=== PATIENT | female | born 1945 | race Caucasian/White ===

== ENCOUNTER 2019-01-22 20:17 | Observation (INO) ==
[2019-01-22 21:45] LABS: Basophils % 0.5 %; Eosinophils # 0.1 K/mcL (0.0-0.6); Eosinophils % 2.3 %; Hematocrit 46.2 % (35.3-44.9); Hemoglobin 15.1 g/dL (11.5-15.4); Immature Granulocytes % 0.3 % (0-4); Lymphocytes # 0.9 K/mcL (0.6-4.6); Lymphocytes % 23.9 %; Mean Corpuscular HGB Conc 32.7 g/dL (31.6-35.5); Mean Corpuscular Hemoglobin 30.5 pg (28.0-33.3); Mean Corpuscular Volume 93.3 fL (83.0-100.0); Mean Platelet Volume 12.3 fL (9.4-12.4); Monocytes # 0.5 K/mcL (0.0-1.3); Monocytes % 12.3 %; Neutrophils # 2.4 K/mcL (1.6-8.9); Platelet Count 151 K/mcL (140-400); Red Blood Count 4.95 M/mcL (3.82-4.97); Red Cell Distribution Width 12.1 % (11.5-14.5); Segmented Neutrophils % 60.7 %; White Blood Count 3.9 K/mcL (4.3-11.1)
--- NOTE | 2019-01-22 21:49 | Emergency Department Note ---
Disposition Clinical Impression: Delirium Altered mental status Qualifiers: Altered mental status type: unspecified Qualified Code(s): R41.82 - Altered mental status, unspecified Disposition: Admitted As Inpatient Condition: Fair Time of Disposition: 01:06 General Adult HPI - General Chief complaint: ED Psychiatric Symptoms Stated complaint: hallucinations/1A Time Seen by Provider: 01/22/19 20:54 Source: patient Mode of arrival: ambulatory Limitations: no limitations Nursing Notes Reviewed: Yes Vital Signs Reviewed: Yes - History of Present Illness HPI Narrative: 73 yo female with past medical history of a seizure disorder with recent change to her medications 3 weeks ago presents to the emergency department with hallucinations and altered mental status. Patient is unable to answer questions and repeatedly just says "I do not know" and is acting very agitated here in the emergency room. Her states that 3 weeks ago she was started on a low- dose benzodiazepine for her seizure disorder and she has been having increased altered mental status since administration of this medication. Medication was stopped 1 week ago and her symptoms have been waxing and waning until tonight when she acutely worsen. She was seen here 3 days ago and was discharged but is afraid that he cannot take care of her at home like this. Pain Scale: 0 - Related Data Home Medications Medication Instructions Recorded Confirmed Cetirizine HCl [Zyrtec] 10 mg PO DAILY 01/18/19 01/22/19 Estradiol [Estrace] 1 mg PO DAILY 01/18/19 01/22/19 LORazepam [Ativan] 1 mg PO DAILY PRN 01/18/19 01/22/19 Mirtazapine [Remeron] 30 mg PO HS 01/18/19 01/22/19 lamoTRIgine [Subvenite] 200 mg PO QAM 01/18/19 01/22/19 lamoTRIgine [Subvenite] 300 mg PO HS 01/18/19 01/22/19 Allergies Allergy/AdvReac Type Severity Reaction Status Date / Time phenobarbital AdvReac Rash Verified 01/22/19 21:58 Limitations: ROS unobtainable due to patients medical condition Past Medical History - Past Medical History Attestation: Yes The following information was validated with the patient. Source: obtained from family Medical history: Reports: seizures Psychiatric history: Reports: anxiety - Social History Smoking Status: Never smoker Smokeless Tobacco Status: No Alcohol use: Reports: occasionally Drug use: Reports: none Physical Exam - General Limitations: no limitations General appearance: alert, in no apparent distress - Head Head exam: atraumatic, normocephalic - Eye Eye exam: Present: normal appearance, PERRL, EOMI - ENT ENT exam: normal exam, normal oropharynx - Neck Neck exam: Present: normal inspection. Absent: tenderness, lymphadenopathy - Chest Chest inspection: Present: normal inspection. Absent: tenderness, rash - Respiratory Respiratory exam: Present: normal lung sounds bilaterally. Absent: wheezes - Cardiovascular Cardiovascular exam: Present: regular rate, normal rhythm - Abdominal Exam Abdominal exam: Present: soft, Non-Tender. Absent: distention, guarding, rebound, rigidity - Extremities Exam Extremities exam: Present: normal inspection. Absent: tenderness, pedal edema - Neurological Exam Neurological exam: Present: alert. Absent: oriented X3 - Psychiatric Psychiatric exam: Present: normal affect, normal mood - Skin Skin exam: Present: warm, dry, intact Course Vital Signs Temperature 97.8 F 01/22/19 20:19 Pulse Rate 90 01/22/19 20:19 Respiratory Rate 20 01/22/19 20:19 Blood Pressure 130/85 01/22/19 20:19 O2 Sat by Pulse Oximetry 96 01/22/19 20:19 Temperature 97.8 F 01/22/19 20:19 Pulse Rate 77 01/23/19 00:10 Respiratory Rate 16 01/23/19 00:10 Blood Pressure 146/90 01/23/19 00:10 O2 Sat by Pulse Oximetry 100 01/23/19 00:10 Oxygen Delivery Oxygen Delivery Room Air Medical Decision Making - [facility] Narrative Medical decision making narrative: Patient presents with altered mental status that has been waxing and waning concerning for delirium which started after she began taking ONFI for seizures. It is undetermined if this is very to medication use or an infectious source. We will obtain altered mental status labs and imaging including CT scan of her head and a chest x-ray. Patient's nighttime dose of her chronic seizure medication Lamictal will be ordered for her or she is here. 1130 - patient's lab work is unremarkable. EKG does not demonstrate any acute changes. Head CT and chest x-ray are without acute findings. Awaiting urinalysis at this time. 0053 - patient has been voiding on her urinalysis and urine tox screen for over an hour. She will be admitted to hospitalist for further workup of her altered mental status which could be secondary to medications or a urinary tract infection. Patient has been accepted to the hospital at this time. - Medical Records Medical records reviewed: Yes I reviewed the patient's medical records. - Lab Data Lab results reviewed: Yes I reviewed the patient's lab results. Result diagrams: 01/22/19 21:25 01/22/19 21:25 Lab Results 01/22/19 01/22/19 01/22/19 Range/Units 21:25 21:25 : WBC 3.9 L (4.3-11.1) K/mcL RBC 4.95 (3.82-4.97) M/mcL Hgb 15.1 (11.5-15.4) g/dL Hct 46.2 H (35.3-44.9) % MCV 93.3 (83.0-100.0) fL MCH 30.5 (28.0-33.3) pg MCHC 32.7 (31.6-35.5) g/dL RDW 12.1 (11.5-14.5) % Plt Count 151 (140-400) K/mcL MPV 12.3 (9.4-12.4) fL Immature Gran % 0.3 (0-4) % Seg Neutrophils % 60.7 % Lymphocytes % 23.9 % Monocytes % 12.3 % Eosinophils % 2.3 % Basophils % 0.5 % Neutrophils # 2.4 (1.6-8.9) K/mcL Lymphocytes # 0.9 (0.6-4.6) K/mcL Monocytes # 0.5 (0.0-1.3) K/mcL Eosinophils # 0.1 (0.0-0.6) K/mcL Basophils # 0.0 (0.0-0.2) K/mcL PT 11.6 (9.4-12.1) Seconds INR 1.0 APTT 31.0 (26.0-36.0) Seconds Sodium 142 (136-145) mEq/L Potassium 4.1 (3.5-5.1) mEq/L Chloride 103 (98-107) mEq/L Carbon Dioxide 28 (23-29) mEq/L BUN 15 (8-23) mg/dL Creatinine 0.89 (0.60-1.20) mg/dL Est GFR ( Amer) > 60 (> 60) Est GFR (Non-Af Amer) > 60 (> 60) BUN/Creatinine Ratio 17 (6-26) Glucose 107 H (70-105) mg/dL Calculated Osmolality 295 (280-300) Calcium 9.7 (8.6-10.3) mg/dL Total Bilirubin 0.5 (0.3-1.0) mg/dL Direct Bilirubin 0.1 (0.0-0.2) mg/dL Indirect Bilirubin 0.4 (0.0-1.2) mg/dL AST 21 (13-39) Units/L ALT 16 (7-52) Units/L Alkaline Phosphatase 65 (34-104) Units/L Ammonia (16-53) mcmol/L Troponin I < 0.03 (< 0.04) ng/mL Serum Total Protein 7.3 (6.4-8.9) g/dL Albumin 4.6 (3.5-5.7) g/dL Globulin 2.7 (2.4-3.5) g/dL Albumin/Globulin Ratio 1.7 (1.1-2.2) Urine Color (Yellow) Urine Clarity (Clear) Urine pH (5.0-8.0) pH Units Ur Specific Gifford (1.010-1.025) Urine Protein (Neg-Trace) mg/dL Urine Glucose (UA) (Normal) mg/dL Urine Ketones (Negative) mg/dL Urine Blood (Negative) Urine Nitrite (Negative) Urine Bilirubin (Negative) Urine Urobilinogen (Normal) mg/dL Ur Leukocyte Esterase (Negative) Ur Culture Indicated? (NO) Salicylates < 2.5 L (15.0-30.0) mg/dL Acetaminophen < 10 L (10-20) mcg/mL Ur Drug Screen Interp Ethyl Alcohol < 10 (Less than 10) mg/dL 01/22/19 01/23/19 01/23/19 Range/Units 21:25 00:49 00:49 WBC (4.3-11.1) K/mcL RBC (3.82-4.97) M/mcL Hgb (11.5-15.4) g/dL Hct (35.3-44.9) % MCV (83.0-100.0) fL MCH (28.0-33.3) pg MCHC (31.6-35.5) g/dL RDW (11.5-14.5) % Plt Count (140-400) K/mcL MPV (9.4-12.4) fL Immature Gran % (0-4) % Seg Neutrophils % % Lymphocytes % % Monocytes % % Eosinophils % % Basophils % % Neutrophils # (1.6-8.9) K/mcL Lymphocytes # (0.6-4.6) K/mcL Monocytes # (0.0-1.3) K/mcL Eosinophils # (0.0-0.6) K/mcL Basophils # (0.0-0.2) K/mcL PT (9.4-12.1) Seconds INR APTT (26.0-36.0) Seconds Sodium (136-145) mEq/L Potassium (3.5-5.1) mEq/L Chloride (98-107) mEq/L Carbon Dioxide (23-29) mEq/L BUN (8-23) mg/dL Creatinine (0.60-1.20) mg/dL Est GFR ( Amer) (> 60) Est GFR (Non-Af Amer) (> 60) BUN/Creatinine Ratio (6-26) Glucose (70-105) mg/dL Calculated Osmolality (280-300) Calcium (8.6-10.3) mg/dL Total Bilirubin (0.3-1.0) mg/dL Direct Bilirubin (0.0-0.2) mg/dL Indirect Bilirubin (0.0-1.2) mg/dL AST (13-39) Units/L ALT (7-52) Units/L Alkaline Phosphatase (34-104) Units/L Ammonia 26 (16-53) mcmol/L Troponin I (< 0.04) ng/mL Serum Total Protein (6.4-8.9) g/dL Albumin (3.5-5.7) g/dL Globulin (2.4-3.5) g/dL Albumin/Globulin Ratio (1.1-2.2) Urine Color Yellow (Yellow) Urine Clarity Clear (Clear) Urine pH 7.0 (5.0-8.0) pH Units Ur Specific Gifford 1.010 (1.010-1.025) Urine Protein Negative (Neg-Trace) mg/dL Urine Glucose (UA) Normal (Normal) mg/dL Urine Ketones Trace H (Negative) mg/dL Urine Blood Negative (Negative) Urine Nitrite Negative (Negative) Urine Bilirubin Negative (Negative) Urine Urobilinogen Normal (Normal) mg/dL Ur Leukocyte Esterase Negative (Negative) Ur Culture Indicated? NO (NO) Salicylates (15.0-30.0) mg/dL Acetaminophen (10-20) mcg/mL Ur Drug Screen Interp See Below Ethyl Alcohol (Less than 10) mg/dL - Radiology Data Radiology results reviewed: Yes I reviewed the patient's radiology results. - EKG Data EKG #1 EKG attestation: Yes I reviewed and interpreted this EKG. EKG results narrative: EKG obtained at 12:31 on 01/22/2019 Heart rate 80 bpm, MN interval 157, QRS duration 99, QT 390, QTC 450 Sinus rhythm without any acute ST segment elevations or depressions. No other T-wave abnormalities. No old EKG for comparison at this time. Attestation Statement - Attestation Attestation: I have seen this patient with the resident physician, I have personally evaluated this patient. I had reviewed the chart and document dictation by the resident physician and aM in agreement with the information documented by the resident physician. Please see documentation by the resident physician for complete chart including past medical history, family medical history, review of systems, current history and physical and laboratory and imaging studies. I was present for all procedures, provided direct supervision for all procedures, was present for the entirety of all procedures and provided direct guidance during the procedures. Please see documentation by the resident physician for any procedures performed. I have reviewed all interpretations of EKGs, and reviewed all EKGs performed on patient's as well. I have also reviewed reports of imaging as provided by radiology.
[2019-01-22 21:52] LABS: Prothrombin Time 11.6 Seconds (9.4-12.1)
[2019-01-22 22:07] LABS: Acetaminophen < 10 mcg/mL (10-20); Alanine Aminotransferase 16 Units/L (7-52); Albumin 4.6 g/dL (3.5-5.7); Albumin/Globulin Ratio 1.7 (1.1-2.2); Alkaline Phosphatase 65 Units/L (34-104); Aspartate Amino Transferase 21 Units/L (13-39); BUN/Creatinine Ratio 17 (6-26); Bilirubin,Direct 0.1 mg/dL (0.0-0.2); Bilirubin,Indirect 0.4 mg/dL (0.0-1.2); Bilirubin,Total 0.5 mg/dL (0.3-1.0); Blood Urea Nitrogen 15 mg/dL (8-23); Calcium 9.7 mg/dL (8.6-10.3); Carbon Dioxide 28 mEq/L (23-29); Chloride 103 mEq/L (98-107); Ethanol < 10 mg/dL (Less than 10); Globulin 2.7 g/dL (2.4-3.5); Glucose 107 mg/dL (70-105); Osmolality,Calculated 295 (280-300); Potassium 4.1 mEq/L (3.5-5.1); Salicylate < 2.5 mg/dL (15.0-30.0); Sodium 142 mEq/L (136-145); Total Protein 7.3 g/dL (6.4-8.9); Troponin I < 0.03 ng/mL (< 0.04); eGFR For African Americans > 60 (> 60); eGFR For Non-African Americans > 60 (> 60)
[2019-01-22] MEDS ORDERED: lamoTRIgine 100 MG TABLET PO SCH (22:15)
[2019-01-22] MEDS ORDERED: 0.9 % Sodium Chloride 1,000 ML IVC ONE (22:22)
--- NOTE | 2019-01-23 00:59 | Emergency Department Note ---
Disposition Clinical Impression: Delirium, Altered mental status Disposition: Admitted As Inpatient Condition: Fair Referrals: NONE,PCP [Primary Care Provider] - Forms: ED Satisfaction Letter Time of Disposition: 00:59 General Adult HPI - General Chief complaint: ED Psychiatric Symptoms Stated complaint: hallucinations/1A Time Seen by Provider: 01/22/19 20:54 Source: patient Mode of arrival: ambulatory Limitations: no limitations Nursing Notes Reviewed: Yes Vital Signs Reviewed: Yes - History of Present Illness Pain Scale: 0 - Related Data Home Medications Medication Instructions Recorded Confirmed Cetirizine HCl [Zyrtec] 10 mg PO DAILY 01/18/19 01/22/19 Estradiol [Estrace] 1 mg PO DAILY 01/18/19 01/22/19 LORazepam [Ativan] 1 mg PO DAILY PRN 01/18/19 01/22/19 Mirtazapine [Remeron] 30 mg PO HS 01/18/19 01/22/19 lamoTRIgine [Subvenite] 200 mg PO QAM 01/18/19 01/22/19 lamoTRIgine [Subvenite] 300 mg PO HS 01/18/19 01/22/19 Allergies Allergy/AdvReac Type Severity Reaction Status Date / Time phenobarbital AdvReac Rash Verified 01/22/19 21:58 Past Medical History - Past Medical History Medical history: Reports: seizures Psychiatric history: Reports: anxiety - Social History Smoking Status: Never smoker Smokeless Tobacco Status: No Alcohol use: Reports: occasionally Drug use: Reports: none Physical Exam - General Limitations: no limitations General appearance: alert, in no apparent distress Course Vital Signs Temperature 97.8 F 01/22/19 20:19 Pulse Rate 90 01/22/19 20:19 Respiratory Rate 20 01/22/19 20:19 Blood Pressure 130/85 01/22/19 20:19 O2 Sat by Pulse Oximetry 96 01/22/19 20:19 Temperature 97.8 F 01/22/19 20:19 Pulse Rate 77 01/23/19 00:10 Respiratory Rate 16 01/23/19 00:10 Blood Pressure 146/90 01/23/19 00:10 O2 Sat by Pulse Oximetry 100 01/23/19 00:10 Oxygen Delivery Oxygen Delivery Room Air Medical Decision Making - Lab Data Result diagrams: 01/22/19 21:25 01/22/19 21:25 Lab Results 06/01/22/19 01/22/19 Range/Units 21:25 21:25 21:25 WBC 3.9 L (4.3-11.1) K/mcL RBC 4.95 (3.82-4.97) M/mcL Hgb 15.1 (11.5-15.4) g/dL Hct 46.2 H (35.3-44.9) % MCV 93.3 (83.0-100.0) fL MCH 30.5 (28.0-33.3) pg MCHC 32.7 (31.6-35.5) g/dL RDW 12.1 (11.5-14.5) % Plt Count 151 (140-400) K/mcL MPV 12.3 (9.4-12.4) fL Immature Gran % 0.3 (0-4) % Seg Neutrophils % 60.7 % Lymphocytes % 23.9 % Monocytes % 12.3 % Eosinophils % 2.3 % Basophils % 0.5 % Neutrophils # 2.4 (1.6-8.9) K/mcL Lymphocytes # 0.9 (0.6-4.6) K/mcL Monocytes # 0.5 (0.0-1.3) K/mcL Eosinophils # 0.1 (0.0-0.6) K/mcL Basophils # 0.0 (0.0-0.2) K/mcL PT 11.6 (9.4-12.1) Seconds INR 1.0 APTT 31.0 (26.0-36.0) Seconds Sodium 142 (136-145) mEq/L Potassium 4.1 (3.5-5.1) mEq/L Chloride 103 (98-107) mEq/L Carbon Dioxide 28 (23-29) mEq/L BUN 15 (8-23) mg/dL Creatinine 0.89 (0.60-1.20) mg/dL Est GFR ( Amer) > 60 (> 60) Est GFR (Non-Af Amer) > 60 (> 60) BUN/Creatinine Ratio 17 (6-26) Glucose 107 H (70-105) mg/dL Calculated Osmolality 295 (280-300) Calcium 9.7 (8.6-10.3) mg/dL Total Bilirubin 0.5 (0.3-1.0) mg/dL Direct Bilirubin 0.1 (0.0-0.2) mg/dL Indirect Bilirubin 0.4 (0.0-1.2) mg/dL AST 21 (13-39) Units/L ALT 16 (7-52) Units/L Alkaline Phosphatase 65 (34-104) Units/L Ammonia (16-53) mcmol/L Troponin I < 0.03 (< 0.04) ng/mL Serum Total Protein 7.3 (6.4-8.9) g/dL Albumin 4.6 (3.5-5.7) g/dL Globulin 2.7 (2.4-3.5) g/dL Albumin/Globulin Ratio 1.7 (1.1-2.2) Salicylates < 2.5 L (15.0-30.0) mg/dL Acetaminophen < 10 L (10-20) mcg/mL Ethyl Alcohol < 10 (Less than 10) mg/dL 01/22/ Range/Units 21:25 WBC (4.3-11.1) K/mcL RBC (3.82-4.97) M/mcL Hgb (11.5-15.4) g/dL Hct (35.3-44.9) % MCV (83.0-100.0) fL MCH (28.0-33.3) pg MCHC (31.6-35.5) g/dL RDW (11.5-14.5) % Plt Count (140-400) K/mcL MPV (9.4-12.4) fL Immature Gran % (0-4) % Seg Neutrophils % % Lymphocytes % % Monocytes % % Eosinophils % % Basophils % % Neutrophils # (1.6-8.9) K/mcL Lymphocytes # (0.6-4.6) K/mcL Monocytes # (0.0-1.3) K/mcL Eosinophils # (0.0-0.6) K/mcL Basophils # (0.0-0.2) K/mcL PT (9.4-12.1) Seconds INR APTT (26.0-36.0) Seconds Sodium (136-145) mEq/L Potassium (3.5-5.1) mEq/L Chloride (98-107) mEq/L Carbon Dioxide (23-29) mEq/L BUN (8-23) mg/dL Creatinine (0.60-1.20) mg/dL Est GFR ( Amer) (> 60) Est GFR (Non-Af Amer) (> 60) BUN/Creatinine Ratio (6-26) Glucose (70-105) mg/dL Calculated Osmolality (280-300) Calcium (8.6-10.3) mg/dL Total Bilirubin (0.3-1.0) mg/dL Direct Bilirubin (0.0-0.2) mg/dL Indirect Bilirubin (0.0-1.2) mg/dL AST (13-39) Units/L ALT (7-52) Units/L Alkaline Phosphatase (34-104) Units/L Ammonia 26 (16-53) mcmol/L Troponin I (< 0.04) ng/mL Serum Total Protein (6.4-8.9) g/dL Albumin (3.5-5.7) g/dL Globulin (2.4-3.5) g/dL Albumin/Globulin Ratio (1.1-2.2) Salicylates (15.0-30.0) mg/dL Acetaminophen (10-20) mcg/mL Ethyl Alcohol (Less than 10) mg/dL Attestation Statement - Attestation Attestation: I have seen this patient with the resident physician, I have personally evaluated this patient. I had reviewed the chart and document dictation by the resident physician and aM in agreement with the information [facility]. Please see documentation by the resident physician for complete chart including past medical history, family medical history, review of systems, current history and physical and laboratory and imaging studies. I was present for all procedures, provided direct supervision for all procedures, was present for the entirety of all procedures and provided direct guidance during the procedures. Please see documentation by the resident physician for any procedures performed. I have reviewed all interpretations of EKGs, and reviewed all EKGs performed on patient's as well. I have also reviewed reports of imaging as provided by radiology. Patient was brought into the emergency department by her , for the third time in 4 days for confusion and altered mental status just progressively getting worse. He states that she has denied decline ever since her neurologist started her on a new medication 3 weeks ago for seizures. She has had seizures for a long time but was started on a new medication secondary to persistent breakthrough partial seizures, by her neurologist, this was a benzodiazepine, they had started with a low-dose it was increased slightly she seemed to get worse when they increased it, but has now not taking this medication for 7 days, they have seen neurology as an outpatient who states that they do not feel that this is related to anything neurologic, they have been to the emergency department at [facility] on they have been to this emergency department on Monday they have seen their primary care doctor yesterday the patient continues to get worse, in regards to increasing confusion and not acting like herself, all of this is new over the last 3 weeks. They report that she does not have any significant history of dementia, however the patient is now convinced that she has dementia according to the . He states that she may have also had some decline since her best friend about 6 weeks ago and he just does not know what is going on with her he states is very abnormal for her. The patient is point time will not talk to me other than to repeatedly over and over and over again state "I do not remember"she has no focal neurologic findings on her physical examination is moving all 4 extremities her speech that she does state is completely clear. Cranial nerves are intact, no facial droop, no tongue deviation, lungs are clear, heart is regular, no carotid bruits, abdomen soft and nontender, no focal neurologic findings with normal strength sensation and reflexes in all 4 extremities. Patient does not seem to cooperate very well with pass pointing no pronator drift but holds her arms clear without obvious difficulty. Head CT showed no acute findings. Basic laboratory studies were all within acceptable limits. She is not on any measurable medications. Secondary to this progressive issues, which do not currently seem to be at least medication related, she will be admitted to the hospital for further evaluation and management, for delirium, does not seem to be transient global amnesia as this seems to be declining progressively, does not seem to be suggestive of posterior reversible encephalopathy syndrome she is not hypotensive, she will be admitted for an MRI of her brain, with consultation from neurology as well as psychiatry as this may be psychiatric in nature as well.
[2019-01-23 01:00] LABS: Bilirubin,Urine Negative (Negative); Blood,Urine Negative (Negative); Clarity,Urine Clear (Clear); Color,Urine Yellow (Yellow); Glucose,Urine (UA) Normal (Normal); Ketones,Urine Trace mg/dL (Negative); Leukocyte Esterase,Urine Negative (Negative); Nitrite,Urine Negative (Negative); Protein,Urine Negative (Neg-Trace); Urobilinogen,Urine Normal (Normal)
[2019-01-23 01:09] LABS: Amphetamine Screen,Urine Negative ng/mL (Cutoff=1000); Barbiturate Screen,Urine Negative ng/mL (Cutoff=200); Benzodiazepines Screen,Urine Negative ng/mL (Cutoff=200); Cannabinoid Screen,Urine Negative ng/mL (Cutoff = 50); Cocaine Screen,Urine Negative ng/mL (Cutoff= 300); Opiate Screen,Urine Negative ng/mL (Cutoff=300); Phencyclidine Screen,Urine Negative ng/mL (Cutoff=25)
[2019-01-23] MEDS ORDERED: Ondansetron 4 MG/2 ML VIAL IVP PRN (10:56)
[2019-01-23] MEDS ORDERED: Acetaminophen 325 MG TABLET PO PRN (10:56)
[2019-01-23] MEDS ORDERED: Naloxone 0.4 MG/ML INJ IVP PRN (10:56)
--- NOTE | 2019-01-23 11:00 | Internal Med History&Physical ---
<Roberto Vanegas - Last Filed: 01/23/19 12:44> Date of Encounter: 01/23/19 Time of Encounter: 10:30 Internal Medicine - H&P: HPI Chief complaint: altered mental status Admitted From: Emergency Dept Plans for Post Hospital Care: Transfer Other History of present illness: Ms. Garcia is a 73 year old female with PMHx of epilepsy since teenager, anxiety, seasonal allergies. Patient is a former retired guidance counselor and lives at home with her . She was brought to the ED by her with chief complaint of rapidly progressive altered mental status that started one day ago. Prior to this episode, she was fully functional independently and required no help with ADL's. Patient's states that she has a long standing history of epilepsy and sees neurologist at [facility]. She was recently start ed on the Clobazam about 3 weeks ago to treat her epilepsy and anxiety. After starting this medication, she was having problems with her thought processes. Her had talked with neurologist about this and was told to change her dose. He became very concerned with her altered mental status, so he brought her to the hospital. Upon exam, she was alert and oriented to time and person. she repeatedly kept saying "i can't remember my name" during questioning. she intermittently follows commands and sometimes will have outbursts. patient appeared very anxious upon exam. Per , patient did not have any recent travel outside the country. they have property in [place], where they go [facility], and they recently got back from [place] around October. She has not had any recent illnesses and has not had any nausea, vomiting, diarrhea, fevers, chills. is requesting transfer to [facility], as patient's neurologist is located there. patient has been accepted for transfer to [facility] by addmitting hospitalist Dr. Laura. Past Med Surg Social Fam HX - Past Medical History Medical history: seizures Psychiatric history: anxiety - Past Surgical History Surgical History: hysterectomy - Social History Smoking Status: Never smoker Smokeless Tobacco Status: No Alcohol use: occasionally Drug use: none Internal Medicine - H&P: Meds Cetirizine HCl [Zyrtec] 10 mg PO DAILY 01/18/19 [History] Estradiol [Estrace] 1 mg PO DAILY 01/18/19 [History] LORazepam [Ativan] 1 mg PO DAILY PRN 01/18/19 [History] Mirtazapine [Remeron] 30 mg PO HS 01/18/19 [History] lamoTRIgine [Subvenite] 200 mg PO QAM 01/18/19 [History] lamoTRIgine [Subvenite] 300 mg PO HS 01/18/19 [History] Allergy/AdvReac Type Severity Reaction Status Date / Time phenobarbital AdvReac Rash Verified 01/22/19 21:58 All Systems PM: A 10-system review of systems was performed and is negative for pertinent findings except as documented above in the HPI. - Constitutional Constitutional: as per HPI - EENT Eyes: as per HPI Ears: as per HPI Nose, mouth and throat: as per HPI - Breasts Breasts: as per HPI - Cardiovascular Cardiovascular ROS IM: as per HPI - Respiratory Respiratory: as per HPI - Gastrointestinal Gastrointestinal: as per HPI - Genitourinary Genitourinary: as per HPI Menstruation: as per HPI - Musculoskeletal Musculoskeletal ROS IM: as per HPI - Integumentary Integumentary IM: as per HPI - Neurological Neurological ROS: as per HPI - Psychiatric Psychiatric: as per HPI - Endocrine Endocrine IM: as per HPI - Hematologic/Lymphatic Hematologic/Lymphatic: as per HPI - Allergic/Immunologic Allergic/Immunologic: as per HPI - Constitutional Vitals: Temp Pulse Resp BP Pulse Ox 98.1 F 72 19 139/87 96 01/23/19 06:23 01/23/19 06:23 01/23/19 06:23 01/23/19 06:23 01/23/19 06:23 Exam: alert and oriented to person and time. appears very anxious. repeatedly keeps sa honey "i can't remember my name." - Head Head exam: Present: normocephalic - Eye Eye exam: Present: PERRL Pupils: Present: PERRL - Neck Neck exam general surgery: Present: supple, trachea midline - Respiratory Respiratory exam: Present: CTAB - Cardiovascular Cardiovascular exam: Present: RRR, +S1, +S2 - GI/Abdominal GI/Abdominal exam: Present: normal bowel sounds. Absent: distended, tenderness - Extremities Exam Extremities exam: Absent: cyanotic, pedal edema - Neurological Exam Neurological exam: Present: altered. Absent: strengths equal and symetr throug hout, pronater drift, facial droop, speech deficit - Psychiatric Psychiatric exam: Present: agitated, anxious Internal Med - H&P Results - Labs CBC & Chem 7: 01/22/19 21:25 01/22/19 21:25 Labs: Short CBC 01/22/19 Range/Units 21:25 WBC 3.9 L (4.3-11.1) K/mcL Hgb 15.1 (11.5-15.4) g/dL Hct 46.2 H (35.3-44.9) % Plt Count 151 (140-400) K/mcL Neutrophils # 2.4 (1.6-8.9) K/mcL BMP 01/22/19 21:25 Sodium 142 Potassium 4.1 Chloride 103 Carbon Dioxide 28 BUN 15 Creatinine 0.89 Glucose 107 H Calcium 9.7 Cardiac Enzymes 01/22/19 Range/Units 21:25 Troponin I < 0.03 (< 0.04) ng/mL Liver Function 01/22/19 Range/Units 21:25 Total Bilirubin 0.5 (0.3-1.0) mg/dL Direct Bilirubin 0.1 (0.0-0.2) mg/dL AST 21 (13-39) Units/L ALT 16 (7-52) Units/L Alkaline Phosphatase 65 (34-104) Units/L Albumin 4.6 (3.5-5.7) g/dL Urine 01/23/19 Range/Units 00:49 Urine Color Yellow (Yellow) Urine Clarity Clear (Clear) Urine pH 7.0 (5.0-8.0) pH Units Ur Specific [place] 1.010 (1.010-1.025) Urine Protein Negative (Neg-Trace) mg/dL Urine Glucose (UA) Normal (Normal) mg/dL - Impressions ITS Impressions Chest X-Ray 01/22/19 21:23 IMPRESSION: No acute process. D/ / Sabas Lozada MD / Sabas Lozada MD Interpreting Provider: Sabas Lozada MD Head CT 01/22/19 21:23 IMPRESSION: No acute intracranial abnormality. D/ / Sabas Lozada MD / Sabas Lozada MD Interpreting Provider: Sabas Lozada MD - Assessment and Plan (1) Altered mental status Status: Acute Assessment and plan: rapidly progressive altered mental status over the past [address] unremarkable. leukopenia on WBC noted. Etiology unclear at this time. with her rate of progression, consider acute psychosis, hashimotos, other types of infectious encephalitis Plan: Brain MRI now. arrange transfer to [facility] at request of , as patient's neurologist is l ocated there. was planning to get lumbar puncture here, but [facility] transfer center recommended holding off, as she would probably get one once she arrived at [facility]. Qualifiers: Altered mental status type: unspecified Qualified Code(s): R41.82 - Altered mental status, unspecified (2) History of epilepsy Status: Acute Assessment and plan: continue lamotrigine (3) DVT prophylaxis Status: Acute Assessment and plan: heparin SQ - Time Spent With Patient Total time spent is greater than 50% in coordination of care (as documented) at patient's floor/unit and/or counseling patient: <Sameera Alcaraz Z - Last Filed: 01/25/19 06:43> Date of Encounter: 01/23/19 Internal Medicine - H&P: HPI History of present illness: Ms. Garcia is a 73 year old female All Systems PM: A 10-system review of systems was performed and is negative for pertinent findings except as documented above in the HPI. - Constitutional Vitals: Temp Pulse Resp BP Pulse Ox 98.4 F 105 16 140/85 93 01/23/19 22:56 01/23/19 22:56 01/23/19 22:56 01/23/19 22:56 01/23/19 22:56 Internal Med - H&P Results - Labs CBC & Chem 7: 01/22/19 21:25 01/22/19 21:25 - Impressions ITS Impressions Chest X-Ray 01/22/19 21:23 IMPRESSION: No acute process. D/ / Sabas Lozada MD / Sabas Lozada MD Interpreting Provider: Sabas Lozada MD Head CT 01/22/19 21:23 IMPRESSION: No acute intracranial abnormality. D/ / Sabas Lozada MD / Sabas Lozada MD Interpreting Provider: Sabas Lozada MD Brain MRI 01/23/19 11:28 IMPRESSION: Stable appearance of the brain without acute intracranial process identified. D/ / 01/23/2019 13:49:54 Benigno Caldwell MD / Kamryn Adams Interpreting Provider: Benigno Caldwell MD - Time Spent With Patient Total time spent is greater than 50% in coordination of care (as documented) at patient's floor/unit and/or counseling patient: - Attending Attestation I performed a history and physical examination of the patient and discussed his management with the resident. I reviewed the residents note and agree with the documented findings and plan of care.
--- NOTE | 2019-01-23 12:06 | Event Note ---
Date of Encounter: 01/23/19 Time of Encounter: 11:30 The nursing staff was concern about acute deterioration of the patient Connegative abilities over the last few hours, it was reported the patient started masturbation in the bed in the presence of nursing staff, was extremely concerned about her overall well-being, he stated that the patient recently has a new antiseizure medication that was started 2 weeks ago and after she started the medication she started being " not herself". She follows neurology oh at [facility] who initially recommended decreasing the dose and later discontinue the medication. Family wanted to transfer the patient to [facility] for further evaluation and management under her current neurology over to there. Neurology was admitted was at bedside evaluating the patient, they agreed with the proposed plan of transfer, [facility] requested to complete the MRI prior to transfer, they are okay to hold on lumbar puncture for now. The family or at was updated about the plan of care.
[2019-01-23] MEDS ORDERED: *HR* LORazepam 2 MG/ML VIAL IVP STA (12:24)
--- NOTE | 2019-01-23 12:25 | Neurology - Consult Note ---
<Joshua Zazueta J - Last Filed: 01/23/19 12:18> Date of Encounter: 01/23/19 Time of Encounter: 12:18 Assessment and Plan (1) Delirium Current Visit: Yes Status: Acute neurology consulted to evaluate for delirium; etiology unknown at this time Occurred 3 weeks ago after beginning Clobazam. Clobazam stopped 8 days ago and delirium has persisted She has had 3 evaluation at [facility] in the ED for delirium since 01/18 The neurological exam is complicated by altered mental state but the patient is verbal and will move all 4 extremities spontaneously At the time of my assessment this afternoon the delirium persists and she is easily agitated Ideally we would recommend MRI of the brain and lumbar puncture given her presentation However, her family is adamant about transfer to [facility] which is where her primary neurologist resides The IM team is setting up transfer In the meantime we will obtain to obtain an MRI to further assist [facility] in the neurological evaluation We are recommending a 1 mg dose of IV Ativan x1 for agitation and to help assist with attaining an MRI of the brain Neurology will c/w following until transfer to [facility] History of Present Illness Chief complaint: delirium HPI: Ms. Garcia is a 73 year old female with a PMH of anxiety and seizure disorder. She presents to the ED for the third timeover the last week with altered mental status agitation and hallucinations. The patient is unable to participate in the history of present illness however, family is present and are providing further details. Additional information obtained from chart review. The reports that approximately 3 weeks ago the patient saw her primary neurologist to added Clobazam in addition to her Lamotrigine therapy for seizures. he reports that shortly after adding this medication she began to have confusion and agitation. He [facility] in which she called her primary neurologist who recommended abrupt discontinuation. Over the last 8 days the patient has had a further decline in her mental state, has had increasing agitation and delirium. The family denies any other neurological deficits such as speech slurring, facial droop, unilateral weakness, further, they deny trauma or falls. The patient was able to deny any headaches, neck pain or neck stiffness as she is able to answer some yes or no questions. At the time of my assessment this afternoon she continues to be extremely agitated and is continuing to repeat the phrase "I do not know your name ". of note, she is verbal and moves all 4 extremities spontaneously however the neurological exam was completed by her altered mental state. there is no obvious source of infection as the chest x-ray and urinalysis is negative. The urine drug screen is also negative. The CBC revealed a mild leukopenia with WBC of 3.9 but was otherwise normal. The chemistry panel was unremarkable. she has had CT imaging of the head which was also unremarkable. Neurology will follow to provide further recommendations. Past Med Surg Social Fam HX - Past Medical History Medical history: seizures Psychiatric history: anxiety - Past Surgical History Surgical History: hysterectomy - Social History Smoking Status: Never smoker Smokeless Tobacco Status: No Alcohol use: occasionally Drug use: none Medications and Allergies Cetirizine HCl [Zyrtec] 10 mg PO DAILY 01/18/19 [History] Estradiol [Estrace] 1 mg PO DAILY 01/18/19 [History] LORazepam [Ativan] 1 mg PO DAILY PRN 01/18/19 [History] Mirtazapine [Remeron] 30 mg PO HS 01/18/19 [History] lamoTRIgine [Subvenite] 200 mg PO QAM 01/18/19 [History] lamoTRIgine [Subvenite] 300 mg PO HS 01/18/19 [History] Allergy/AdvReac Type Severity Reaction Status Date / Time phenobarbital AdvReac Rash Verified 01/22/19 21:58 ROS unobtainable: due to mental status All Systems: The remainder of the systems were reviewed and are negative Physical Examination - Vital Signs Vital Signs: Initial Vital Signs Temp Pulse Resp BP Pulse Ox 97.8 F 90 20 130/85 96 01/22/19 20:19 01/22/19 20:19 01/22/19 20:19 01/22/19 20:19 01/22/19 20:19 - Exam Exam: Examination: complicated by altered mental state General Examination: *CONSTITUTIONAL: Alert to self,agitated *GENERAL APPEARANCE OF PATIENT appears healthy and well groomed *EYES: pupils equal, round, reactive to light and accommodation, conjunctiva clear *ASSESSMENT OF MUSCLE STRENGTH IN THE UPPER AND LOWER EXTREMITIES moves all 4 extremities spontaneously *MUSCLE TONE IN THE UPPER AND LOWER EXTREMITIES normal. No abnormal movements, fasciculations or atrophy identified. Neurological: *ORIENTATION to person, and aware of president but is delirious otherwise *RECURRENT AND REMOTE MEMORY altered due to delirium *ATTENTION AND CONCENTRATION delirious *LANGUAGE FUNCTION no significant aphasia or dysarthia was noted. *MENTAL attention span and concentration are abnormal. The patient is extremely agitated and has difficulty maintaining focus with delirium *CN V shows normal sensation and jaw opens symmetrically. *CN VII shows normal facial movement symmetrically, upper and lower bilaterally. *CN VIII shows no significant hearing loss on exam;she is able to respond yes or no to basic questioning *CN XI normal strength in the sternocleidomastoid muscles;she will follow me throughout the room *REFLEXES: deep tendon reflexes were normal and symmetrical , grade 1/4 diffusely, no pathological reflexes were noted. Results - Laboratory Findings CBC and BMP: 01/22/19 21:25 01/22/19 21:25 Abnormal lab findings: Abnormal lab results WBC 3.9 K/mcL (4.3-11.1) L 01/22/19 21:25 Hct 46.2 % (35.3-44.9) H 01/22/19 21:25 Glucose 107 mg/dL (70-105) H 01/22/19 21:25 Trace mg/dL (Negative) H 01/23/19 00:49 Salicylates < 2.5 mg/dL (15.0-30.0) L 01/22/19 21:25 Acetaminophen < 10 mcg/mL (10-20) L 01/22/19 21:25 - Diagnostic Findings Additional findings: CT/CT head/brain wo con IMPRESSION: No acute intracranial abnormality. Consult Discharge Plan - Plan Additional Instructions: further management per [facility]. follow up with your neurologist at [facility] Referrals: NONE,PCP [Primary Care Provider] - <Anjana García I - Last Filed: 01/23/19 16:28> Date of Encounter: 01/23/19 Assessment and Plan (1) Delirium Current Visit: Yes Status: Acute I have personally performed a face to face diagnostic evaluation, including HPI, EXAM, which is included in the Assesment and plan, which was discussed with Joshua Zazueta CNP, I agree with the above outlined documentation. Patient seems to be alert and awake now able to follow simple commands without any involvement of cranial nerves, Motor examination she is moving all 4 extremities equally without any focal motor or sensory deficit. Reflexes are symmetrical and downgoing toes bilaterally She just had an MRI of the brain which was reviewed and did not show any evidence of infarct or bleed or any other structural abnormality. Considering patient's symptoms seems to be consistent with acute delirium per haps could be related to medication side effect especially when noted to have significant behavioral changes by the family. Some improvement noted in her behavior since she has received Ativan for an MRI though she continued to have some motor movements. MRI results as well as other differentials were discussed with the patient family including the was present at the bedside. At the moment she seems to be stable but certainly she is having these behavioral as well as motor symptoms which is likely related to medication side effect but the same time need to exclude other psychological as well as infections causes as well she is awaiting transfer to [facility], as soon as bed is available Discussed with the family the agrees with the plan Anjana García MD. NeurologyI History of Present Illness HPI: Ms. Garcia is a 73 year old female All Systems: The remainder of the systems were reviewed and are negative Physical Examination - Vital Signs Vital Signs: Initial Vital Signs Temp Pulse Resp BP Pulse Ox 97.8 F 90 20 130/85 96 01/22/19 20:19 01/22/19 20:19 01/22/19 20:19 01/22/19 20:19 01/22/19 20:19 Results - Laboratory Findings CBC and BMP: 01/22/19 21:25 01/22/19 21:25 Abnormal lab findings: Abnormal lab results WBC 3.9 K/mcL (4.3-11.1) L 01/22/19 21:25 Hct 46.2 % (35.3-44.9) H 01/22/19 21:25 Glucose 107 mg/dL (70-105) H 01/22/19 21:25 Trace mg/dL (Negative) H 01/23/19 00:49 Salicylates < 2.5 mg/dL (15.0-30.0) L 01/22/19 21:25 Acetaminophen < 10 mcg/mL (10-20) L 01/22/19 21:25
--- NOTE | 2019-01-23 12:43 | Electrocardiograph Report ---
[place] [id number] Test Date: 2019-01-22 Pat Name: Nanci Garcia Department: [id number] Room: 3B41 Gender: F Food And Drug Inspector: : 1945 Requested By: Alessia Gomez Order Number: [id number] Reading MD: Luda Lyon Measurements Intervals [place] Rate: 80 P: 54 LA: 157 QRS: 58 QRSD: 99 T: 63 QT: 390 QTc: 450 Interpretive Statements Sinus rhythm Consider left atrial enlargement Electronically Signed On 01-23-2019 12:41:53 EDT by Luda Lyon
--- NOTE | 2019-01-23 13:34 | Discharge Summary ---
<Roberto Vanegas - Last Filed: 01/23/19 16:01> Orders not resulted at time of discharge: Pending orders 01/23/19 11:28 MR head/brain wo con [MR] Stat 01/23/19 11:57 Anti-Microsomal Antibody,(TPO) Routine 01/24/19 04:00 Basic Metabolic Panel AM 0400 Complete Blood Count [HEME] AM 0400 Magnesium AM 0400 Phosphorous AM 0400 Date of Encounter: 01/23/19 Time of Encounter: 13:32 - Discharge Diagnosis (1) Altered mental status Priority: Primary Status: Acute Qualifiers: Altered mental status type: unspecified Qualified Code(s): R41.82 - Altered mental status, unspecified (2) History of epilepsy Priority: Secondary Status: Acute (3) DVT prophylaxis Priority: Secondary Status: Acute Hospital course: Ms. Garcia is a 73 year old female with PMHx of epilepsy since teenager, anxiet y, seasonal allergies. Patient is a former retired guidance counselor and lives at home with her . She was brought to the ED by her with chief complaint of rapidly progressive altered mental status that started one day ago. Prior to this episode, she was fully functional independently and required no help with ADL's. Patient's states that she has a long standing history of epilepsy and sees neurologist at [facility]. She was recently started on the Clobazam about 3 weeks ago to treat her epilepsy and anxiety. After starting this medication, she was having problems with her thought processes. Her had talked with neurologist about this and was told to change her dose. He became very concerned with her altered mental status, so he brought her to the hospital. Upon exam, she was alert and oriented to time and person. she repeatedly kept saying "i can't remember my name" during questioning. she intermittently follows commands and sometimes will have outbursts. patient appeared very anxious upon exam. Per , patient did not have any recent travel outside the country. they have property in [place], where they go regularly, and they recently got back from [place] around October. She has not had any recent illnesses and has not had any nausea, vomiting, diarrhea, fevers, chills. is requesting transfer to [facility], as patient's neurologist is located there. patient has been accepted for transfer to [facility] by addmitting hospitalist Dr. Laura. Prior to leaving, she will get Brain MRI and records will be sent with her. Discharge discussed with: family - Time Spent with Patient Total time spent providing and/or coordinating discharge services: Time spent: Greater than 30 minutes - Discharge Medications Prescriptions: No Action lamoTRIgine [Subvenite] 200 mg PO QAM lamoTRIgine [Subvenite] 300 mg PO HS Mirtazapine [Remeron] 30 mg PO HS LORazepam [Ativan] 1 mg PO DAILY PRN PRN Reason: Anxiety Estradiol [Estrace] 1 mg PO DAILY Cetirizine HCl [Zyrtec] 10 mg PO DAILY Home Medications: Cetirizine HCl [Zyrtec] 10 mg PO DAILY 01/18/19 [History] Estradiol [Estrace] 1 mg PO DAILY 01/18/19 [History] LORazepam [Ativan] 1 mg PO DAILY PRN 01/18/19 [History] Mirtazapine [Remeron] 30 mg PO HS 01/18/19 [History] lamoTRIgine [Subvenite] 200 mg PO QAM 01/18/19 [History] lamoTRIgine [Subvenite] 300 mg PO HS 01/18/19 [History] Allergies/Adverse Reactions: Allergy/AdvReac Type Severity Reaction Status Date / Time phenobarbital AdvReac Rash Verified 01/22/19 21:58 Date of admission: 01/23/19 01:25 Primary care physician: PCP NONE Consults: 01/23/19 11:31 Consult to Neurology [CONS] Routine Consulting Provider: [facility] Reason for Consult: rapidly progressive alerted mental status Call Completed: Yes Discharging clinician: Roberto Vanegas Anticipated date of discharge: 01/23/19 - Constitutional Vitals: Temp Pulse Resp BP Pulse Ox 97.4 F L 76 17 152/78 96 01/23/19 11:36 01/23/19 11:36 01/23/19 11:36 01/23/19 11:36 01/23/19 11:36 Exam: alert and oriented to person and time. appears very anxious. repeatedly keeps saying "i can't remember my name." - Head Head exam: Present: atraumatic, normocephalic - ENT ENT exam: Present: mucous membranes moist - Neck Neck exam general surgery: Present: supple, trachea midline - Respiratory Respiratory exam: Present: CTAB - Cardiovascular Cardiovascular exam: Present: rubs, +S1, +S2 - GI/Abdominal GI/Abdominal exam: Present: normal bowel sounds, soft. Absent: distended, tenderness - Extremities Exam Extremities exam: Absent: cyanotic, pedal edema - Neurological Exam Neurological exam: Present: alert, altered Additional comments: alert and oriented to self and time only. - Psychiatric Psychiatric exam: Present: agitated, anxious - Patient Status Disposition: Transfer Critical Access Hosp Condition: Fair Functional capacity at discharge: independent ambulation Overall status at discharge: patient is not back to baseline - Discharge Instructions Follow Up With: NONE,PCP [Primary Care Provider] - Additional Instructions: further management per [facility]. follow up with your neurologist at [facility] - Diet and Activity Activity: increase activity as tolerated Diet: advance to your usual diet <Sameera Alcaraz - Last Filed: 01/25/19 06:41> Orders not resulted at time of discharge: Pending orders 01/23/19 11:57 Anti-Microsomal Antibody,(TPO) Routine Date of Encounter: 01/24/19 Hospital course: Ms. Garcia is a 73 year old female - Time Spent with Patient Total time spent providing and/or coordinating discharge services: Date of admission: 01/23/19 01:25 Primary care physician: PCP NONE Consults: 01/23/19 11:31 Consult to Neurology [CONS] Routine Consulting Provider: [facility] Reason for Consult: rapidly progressive alerted mental status Call Completed: Yes - Constitutional Vitals: Temp Pulse Resp BP Pulse Ox 98.4 F 105 16 140/85 93 01/23/19 22:56 01/23/19 22:56 01/23/19 22:56 01/23/19 22:56 01/23/19 22:56 - Attending Attestation I performed a history and physical examination of the patient and discussed his management with the resident. I reviewed the residents note and agree with the documented findings and plan of care.
[2019-01-23] MEDS ORDERED: 0.9 % Sodium Chloride 1,000 ML IVC SCH (13:45)
[2019-01-23] MEDS ORDERED: *HR* LORazepam 2 MG/ML VIAL IVP ONE (17:17)
[2019-01-23] MEDS ORDERED: *HR* Heparin 5,000 UNIT/ML VIAL SQ SCH (18:00)
[2019-01-23] MEDS ORDERED: lamoTRIgine 100 MG TABLET PO SCH (21:00)
[2019-01-23 22:57] VITALS: BP 140/85
[2019-01-24] MEDS ORDERED: lamoTRIgine 100 MG TABLET PO SCH (09:00)
[2019-01-24] MEDS ORDERED: Loratadine 10 MG TABLET PO SCH (09:00)
== END 2019-01-23 23:55 | disposition critical access hospital (66) ==
LOC: EMEROOARM 20:17 → 3BNU 20:17
PROVIDERS: ADMIT Family Medicine; ATTEND Family Medicine